=== PATIENT | male | born 1965 | race Two or more races ===

== ENCOUNTER 2025-07-04 08:41 | Outpatient (OUT) | payer OTHER, SELFPAY ==
--- OUTSIDE RECORDS SUMMARY | 2025-07-02 11:00 | XMS_ITS | Encounter Summary ---
Author Organization [facility] Address [address] [place] [address] Care Team Providers Care Human Resource Statistician Name Role Phone Unavailable Primary Care Provider Unavailabl e Reason for Referral * (Routine) - Pending Review Specialty Diagnoses / Procedures Referred By Contac t Referred To Contact Diagnoses Other chest pain Procedures ECG 12 lead unit performed Louis Guevara MD [address] [place] [phone] Phone: tel: fax: Referral ID Status Reason Start Date Expiration Date V isits Requested Visits Authorized [id number] Pending Review 07/02/2025 07/02/2026 1 1 Reason for Visit * Reason Comments New Patient Patient is here toda y for chest pain and to establish care with cardiology. Patient recently had a home sleep study, no results, patient will send testing equipment in today. Chest Pain Depression anxity Hypertension Hyperlipidemia Pulmonay nodule Encounter Details Date Type Department Care Team (Late st Contact Info) Description 07/02/2025 11:00 AM EDT Office Visit [facility] at [facility] [address] [place] [id number] Louis Guevara MD [address] [place] [address] Other chest pain (Primary Dx) Social History Tobacco Use Types Packs/Day Years Used Date Smoking Tobacco: Former Cigarettes Smokeless Tobacco: Never Tobacco Cessation:Counseling Given: Not Answered Alcohol Use Standard Drinks/Week Comments Not Currently 0 (1 standard drink = 0.6 oz pur e alcohol) Sex and Gender Information Value Date Recorded Sex Assigned at Male 07/02/2025 11:00 AM EDT Legal Sex Male 1:00 PM EDT Gender Identity Male 07/02/2025 11:00 AM EDT Sexual Orientation Heterosexual or Straight 06/16 11:00 AM EDT documented as of this encounter Last Filed Vital Signs Vital Sign Reading Time Taken Comments Blood Pressure 193/108 07/02/2025 11:19 AM EDT Pulse 65 07/02/2025 11:19 AM EDT Temperature - - Respiratory Rate - - Oxygen Saturation 98% 07/02/2025 11:19 AM EDT Inhaled Oxygen Concentration - - Weight 75.3 kg (166 lb) 07/02/2025 11:19 AM EDT Height 165.1 cm (5' 5 ) 07/02/2025 11:19 AM EDT Body Mass Index 27.62 07/02/2025 11:19 AM EDT documented in this encounter Progress Notes * Louis Guevara MD - 07/02/2025 11:00 AM EDT Subjective Patient ID: Rafa Cramer Jr. is a 60 y.o. male who presents for New Patient (Patient is here today for chest pain and to establish care with cardiology. Patient recently had a home sleep study, no results, patient will send testing equipment in today. ), Chest Pain, Depression, anxity, Hypertension, Hyperlipidemia, and Pulmonay nodule. I been having chest pains A lot of stress right now. Last job was at [employer]. New child at home. Hard pain in center of chest like an ache. When under a lot of pressure, tightening, short of breath. 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 His past medical history is significant for hyperlipidemia. DepressionPatient presents with the following symptoms: shortness of breath. Hypertension Associated symptoms include chest pain and shortness of breath. Hyperlipidemia Associated symptoms include chest pain and shortness of breath. Review of Systems Respiratory: Positive for chest tightness and shortness of breath. Cardiovascular: Positive for chest pain. Psychiatric/Behavioral: Positive for depression. Objective Visit Vitals BP (!) 193/108 (BP Location: Left arm, Patient Position: Sitting) Pulse 65 Physical Exam Constitutional: Appearance: Normal appearance. He is normal weight. HENT: Head: Normocephalic and atraumatic. Cardiovascular: Rate and Rhythm: Normal rate and regular rhythm. No extrasystoles are present. Chest Wall: PMI is not displaced. No thrill. Pulses: Carotid pulses are 2+ on the right side and 2+ on the left side. Heart sounds: Heart sounds not distant. No murmur heard. No friction rub. No gallop. Pulmonary: Effort: Pulmonary effort is normal. Breath sounds: Normal breath sounds. Abdominal: General: Abdomen is flat. Palpations: Abdomen is soft. Musculoskeletal: Right lower leg: No edema. Left lower leg: No edema. Skin: General: Skin is warm and dry. Neurological: General: No focal deficit present. Mental Status: He is oriented to person, place, and time. Mental status is at baseline. Psychiatric: Mood and Affect: Mood normal. Behavior: Behavior normal. Thought Content: Thought content normal. Assessment/Plan Mr. Cramer has typical anginal chest pain. With normal stress test plan exercise stress test to evaluate. Will start aspirin, enteric coated EC 81 mg Diagnosis Plan 1. Other chest pain ECG 12 lead unit performed Orders Placed This Encounter Procedures ECG 12 lead unit performed This back office order was created through the Back Office Visit Navigator section. Release to Patient: Immediately No results found for this or any previous visit (from the past 36 hours). No follow-ups on file. documented in this encounter Plan of Treatment Upcoming Encounters Date Type Department Care Team (Late st Contact Info) Description 07/09/2025 9:40 AM EDT Office Visit [facility] at [facility] [address] [place] [address] Louis Guevara MD [address] [place] [phone] documented as of this encounter Procedures Procedure Name Priority Date/Time Associated Diagnosis Comments ECG 12 LEAD UNIT PERFORMED Routine 07/02/2025 11:16 AM EDT Other chest pain documented in this encounter Results * ECG 12 lead unit performed (07/02/2025 11:16 AM EDT) us Louis Guevara MD ECG ORDERABLES Final Resu lt documented in this encounter Visit Diagnoses Diagnosis Other chest pain- Primary documented in this encounter
--- OUTSIDE RECORDS SUMMARY | 2025-07-04 08:47 | XMS_ITS | Clinical Summary ---
Author Organization [facility] Address [address] [place] [address] Care Team Providers Care Wrapper Opener Name Role Phone Unavailable Primary Care Provider Unavailabl e Social History Tobacco Use Types Packs/Day Years Used Date Smoking Tobacco: Never Assessed Sex and Gender Information Value Date Recorded Sex Assigned at Not on file Legal Sex Male 7:12 PM EDT Gender Identity Not on file Sexual Orientation Not on file Plan of Treatment Not on file
--- OUTSIDE RECORDS SUMMARY | 2025-07-04 08:47 | XMS_ITS | Clinical Summary ---
Author Organization [facility] Address [address], [address] [place] [address] Care Team Providers Care Checkout Operator Name Role Phone Unavailable Primary Care Provider Unavailabl e Social History Tobacco Use Types Packs/Day Years Used Date Smoking Tobacco: Never Assessed Sex and Gender Information Value Date Recorded Sex Assigned at Not on file Legal Sex Male 7:51 PM EST Gender Identity Not on file Sexual Orientation Not on file Plan of Treatment Not on file
--- OUTSIDE RECORDS SUMMARY | 2025-07-04 08:47 | XMS_ITS | Encounter Summary ---
Author Organization [facility] Address [address] [place] [address] Care Team Providers Care Solvent Plant Operator Name Role Phone Unavailable Primary Care Provider Unavailabl e Encounter Details Date Type Department Care Team (Late st Contact Info) Description 07/02/2025 Orders Only [facility] [address] [place] [address] Radha Lazcano MA Other chest pain (Primary Dx) Social History Tobacco Use Types Packs/Day Years Used Date Smoking Tobacco: Former Cigarettes Smokeless Tobacco: Never Alcohol Use Standard Drinks/Week Comments Not Currently 0 (1 standard drink = 0.6 oz pur e alcohol) Sex and Gender Information Value Date Recorded Sex Assigned at Male 07/02/2025 11:00 AM EDT Legal Sex Male 1:00 PM EDT Gender Identity Male 07/02/2025 11:00 AM EDT Sexual Orientation Heterosexual or Straight 06/16 11:00 AM EDT documented as of this encounter Plan of Treatment Upcoming Encounters Date Type Department Care Team (Late st Contact Info) Description 07/09/2025 9:40 AM EDT Office Visit [facility] [address] [place] [address] Louis Guevara MD [address] [place] [address] Scheduled Orders Name Type Priority Associated Diagnoses Orde r Schedule Routine Stress (Treadmill Only) Cardiac Services Routine Other chest pain Expected: 07/02/2025 (Approximate), Expires: 07/02/2027 documented as of this encounter Visit Diagnoses Diagnosis Other chest pain- Primary documented in this encounter
--- OUTSIDE RECORDS SUMMARY | 2025-07-04 08:47 | XMS_ITS | Clinical Summary ---
Author Organization [facility] Address [address] [place] [address] Care Team Providers Care Market Development Trainer Name Role Phone Unavailable Primary Care Provider Unavailabl e Allergies Active Allergy Reactions Criticality Noted Date Comments Lactose Diarrhea,Unknown 09/29/2020 Medications sertraline (Zoloft) 100 mg tablet Take 100 mg by mouth Twice daily at 6am and 6pm. 02/24/2025 Active rosuvastatin (Crestor) 5 mg tablet Take 5 mg by mouth in the morning. 04/21/2025 Active omega 7-ejd-mgr-fish oil (Fish OiL) 1,000 (120-180) mg capsule Take 1,000 mg by mouth once daily as directed. Active hydrOXYzine HCL (Atarax) 10 mg tablet Take 25 mg by mouth if needed. 03/24/2025 Active Active Problems Problem Noted Date Diagnosed Date Anxiety 07/02/2025 Chest pain 07/02/2025 Other chest pain 07/02/2025 Counseling, unspecified 07/02/2025 Depression 07/02/2025 Elevated blood-pressure read ing, without diagnosis of hypertension 07/02/2025 Essential (primary) hypertension 07/02/2025 History of diverticulitis 07/02/2025 History of pancreatitis 07/02/2025 Labile hypertension due to clinical environment 07/02/2025 Hypertriglyceridemia 07/02/2025 Generalized anxiety disorder 07/02/2025 Snoring 07/02/2025 Tobacco use disorder, continuous 07/02/2025 Encounters Date Type Department Care Team Description 07/02/2025 11:00 AM EDT Office Visit [facility] at [facility] [address] [place] [address] Louis Guevara MD Other chest pain (Primary Dx) 07/02/2025 Orders Only [facility] [address] [place] [address] Radha Lazcano MA Other chest pain (Primary Dx) 06/13/2025 Orders Only [facility] [address] [place] [address] Provider, MD Nirmal from Last 3 Months Family History Medical History Relation Name Comments Diabetes Brother 1 Diabetes Father Breast cancer Mother Breast cancer Sister Diabetes Sister Relation Name Status Comments Brother 1 Alive Brother 2 Alive Brother 3 Alive Brother 4 Alive Father Mother Alive Sister Alive Social History Tobacco Use Types Packs/Day Years [...] Heterosexual or Straight 06/16 11:00 AM EDT Last Filed Vital Signs Vital Sign Reading [...] Mass Index 27.62 07/02/2025 11:19 AM EDT Plan of Treatment Upcoming Encounters Date Type Department Care Team (Late st Contact Info) Description 07/09/2025 9:40 AM EDT [facility] [address] [place] [address] Louis Guevara MD [address] [place] [address] [place] [address] Health Maintenance Due Date Last Done Comments CT Colonography 1965 Colonoscopy 1965 Colorectal Cancer Screening 1965 FIT-DNA 1965 FIT 1965 FOBT 1965 Sigmoidoscopy 1965 Depression Screening 1976 Adult Tetanus 1986 Zoster Vaccines (1 of 2) 2014 COVID-19 Vaccine (2023-2 5 season) 2025 Influenza Vaccine (#1) 2025 HIB Vaccines Aged Out No longer eligi ble based on patient's age to complete this topic HPV Vaccines Aged Out No longer eligi ble based on patient's age to complete this topic IPV Vaccines Aged Out No longer eligi ble based on patient's age to complete this topic Meningococcal B Vaccine Aged Out No l onger eligible based on patient's age to complete this topic Meningococcal Vaccine Aged Out No donal tj eligible based on patient's age to complete this topic Pneumococcal Vaccine: Pediat rics (0 to 5 Years) and At-Risk Patients (6 to 64 Years) Aged Out No longer eligible b ased on patient's age to complete this topic Rotavirus Vaccines Aged Out No longer eligible based on patient's age to complete this topic Procedures Procedure Name Priority Date/Time Associated Diagnosis Comments ECG 12 LEAD UNIT PERFORMED Routine 07/02/2025 11:16 AM EDT Other chest pain CBC Routine 06/13/2025 8:13 AM EDT COMPREHENSIVE METABOLIC PANEL Routine 06/13/2025 8:13 AM EDT LIPID PANEL Routine 06/13/2025 8:13 AM EDT COMPREHENSIVE METABOLIC PANEL Routine 06/13/2025 8:11 AM EDT ECG 12-LEAD Routine 06/13/2025 8:10 AM EDT from Last 3 Months Results * ECG 12 lead unit performed (07/02/2025 11:16 AM EDT) us Louis Guevara MD ECG ORDERABLES Final Resu lt * CBC (06/13/2025 8:13 AM EDT) Blood Venous blood specimen / Unknown Historical Provider MD LAB BLOOD ORDERABLES Laura l Result * Lipid panel (06/13/2025 8:13 AM EDT) Blood Venous blood specimen / Unknown Result [facility] Provider MD LAB BLOOD ORDERABLES Laura l Result * Comprehensive metabolic panel (06/13/2025 8:13 AM EDT) Only the most recent of2 resultswithin the time period is included. Blood Venous blood specimen / Unknown Result [facility] Provider LAB BLOOD ORDERABLES Laura l Result * ECG 12 lead (06/13/2025 8:10 AM EDT) Result [facility] Provider ECG ORDERABLES Final Res ult from Last 3 Months Insurance [address] [place] [address] [place] [address]
--- NOTE | 2025-07-04 11:09 | PC.NURSE ---
Nursing Note Cardiac Stress Test Reviewed: Medication, allergies and patient history reviewed. Stress Test: [ ]? Patient tolerated stress test well. [ ]? Patient unable to tolerate walking on treadmill. Switched to Lexiscan stress test. [ ]? No chest pain noted per patient [ x]? Chest pain that resolved prior to leaving stress lab. [ ]? No dyspnea noted. [x ]? Dyspnea that resolved prior to leaving stress lab. [ x]? Patient left stress lab asymptomatic and hemodynamically stable. [ ]? Patient taken to the Emergency Room due to non-resolving symptoms following stress test. [ ]? Patient achieved target heart rate. [ x]? Patient unable to achieve target heart rate. [ ]? Aminophylline administered as reversal agent to Lexiscan (Regadenoson). [ ]? Nitro administered. Nursing Comments:Patient was unable to ambulate on the treadmill due to increased blood pressure. Patient complained of chest pain, lightheaded and shaking. Blood pressure start at 168/100 and increased to 240/120. Dr Jeronimo notified. New orders provided to patient. Patient educated on importance of starting new medication and to pick it up from pharmacy. Patients blood pressure decreased to baseline in recovery stage. Patient states chest pain and lightheaded subsided after a few minutes. Patient left cardiac lab stable and asymptomatic.
--- NOTE | 2025-07-04 16:03 | PM.STRESS ---
Stress Test Stress Test Requesting physician: HAYDEE CASTILLO Procedure: Treadmill EKG stress test General Information: Reason for Stress Test: [Chest pain] Cardiac History and Risk Factors: [Hypertension and hyperlipidemia] Resting 12 - Lead Electrocardiogram: Resting twelve-lead EKG showed sinus bradycardia, heart rate 57 bpm, T wave inversion in V3. Resting blood pressure 168/100. Patient was exercised according to standard Hakeem protocol and was able to finish 5 minutes and 6 seconds consistent with stage II and VII METS. Exercise was terminated because of excessive hypertensive response to exercise. At that level patient had mild chest discomfort and dizziness. Patient achieved only 103 bpm which represents only 65% of age-predicted maximum heart rate and maximal blood pressure 240/100 mmHg. This patient was monitored up to 10 minutes into recovery phase with heart rate back to 68 bpm and blood pressure to 164/100 mmHg. Of note chest pain resolved within couple minutes of recovery. EKG during exercise, at peak exercise and during recovery phase did not show any significant T or ST changes. Very rare isolated PVCs were noted Stress Test: Protocol: [Hakeem] Exercise Capacity: [Could not be determined due to premature termination of the test] Blood Pressure Response: [Resting hypertension and excessive hypertensive response to exercise] Rhythm: [Sinus, rare PVCs] ST - Response: [No ST changes] Patient Response: [Chest pain and dizziness at peak exercise] Interpretation: Submaximal stress test achieving only 65% of age-predicted maximum heart rate. Stress test was terminated due to excessive hypertensive response to exercise At this level of exercise there was no evidence of exercise-induced ischemic EKG changes or arrhythmia however the patient had chest discomfort at peak exercise with dizziness Plan: Patient was started on lisinopril 20 mg daily for blood pressure control and to check BMP in 1 week Patient to come to the cardiology clinic in about 10 to 15 days to check blood pressure Will reschedule him for a treadmill nuclear stress test when his blood pressure is better controlled Patient was advised to seek medical attention immediately if he has recurrent chest pain Dany Jeronimo MD [facility]
== END 2025-07-04 08:42 | disposition home or self-care (01) ==
LOC: CARD 08:45
PROVIDERS: Visit Provider Internal Medicine Cardiovascular Disease
DX: R07.89 Other chest pain (principal)
CPT/HCPCS: 93017

== ENCOUNTER 2025-07-09 07:14 | Outpatient (OUT) | payer OTHER, SELFPAY ==
--- NOTE | 2025-07-09 07:00 | NM_ITS ---
Patient Name: JUVENCIO GARCIA MR#: [id number] : 1965 Exam Date: 07/09/2025 Ordering Doctor: DR. TWILA JERONIMO M.D. RADIOLOGY REPORT PROCEDURE: NM BRYANNA PERF SPECT REST STR COMPARISON: None. INDICATIONS: HYPERTENSION, CHEST PAIN TECHNIQUE: Exam Description: Stress/Rest one day protocol gated SPECT Rest Imagin.2 mCi Tc-99m Cardiolite IV on 07/09/2025 Stress Imaging 30.5 mCi Tc-99m Cardiolite IV on 07/09/2025 Exercise Protocol: 0.4 mg Lexiscan given IV Heart Rate (bpm): Rest: 77 Max: 92 PMHR: 57 Blood Pressure: Rest: 186/92 Max: 186/92 Symptoms: Rest and peak stress ECG findings were pending and the EKG portion of the study was pending per attending physician RUST . For more details please see separate cardiac stress test report. FINDINGS: QUALITY OF STUDY: Good PERFUSION DEFECT: LOCATION: Inferior SIZE: Medium SEVERITY: Mild TYPE: Fixed with adequate contractility and thickening consistent with diaphragmatic attenuation artifact WALL MOTION: Normal LV SIZE: 91 mL. TID / TCD: 0.8 LVEF: Calculated EF 66%. SUMMARY: Normal myocardial perfusion imaging study CONCLUSION: Normal nuclear myocardial perfusion stress test without evidence of ischemia or infarction Normal left ventricular systolic function, ejection fraction 66% No transient ischemic dilatation, score 0.8 EKG portion of stress test is reported separately Dictated by: Twila Jeronimo MD on 07/10/2025 at 17:13 Approved by: Twila Jeronimo MD on 07/10/2025 at 17:18
[2025-07-09] MEDS: REGADENOSON 0.4 MG/5 ML SYRINGE IV (09:08)
--- NOTE | 2025-07-09 09:11 | PC.NURSE ---
Nursing Note Cardiac Stress Test Reviewed: Medication, allergies and patient history reviewed. Stress Test: [ ] Patient tolerated stress test well. [x ] Patient unable to tolerate walking on treadmill. Switched to Lexiscan stress test. [x ] No chest pain noted per patient [ ] Chest pain that resolved prior to leaving stress lab. [ ] No dyspnea noted. [x ] Dyspnea that resolved prior to leaving stress lab. [ x] Patient left stress lab asymptomatic and hemodynamically stable. [ ] Patient taken to the Emergency Room due to non-resolving symptoms following stress test. [ ] Patient achieved target heart rate. [x ] Patient unable to achieve target heart rate. [ ] Aminophylline administered as reversal agent to Lexiscan (Regadenoson). [ ] Nitro administered. Nursing Comments:Pt attempted TM but was unable to reach target HR. Pt switched to Lexiscan and tolerated well. No CP noted but had SOB after TM that resolved within 3 minutes of rest. Pt ambulated to cafeteria for breakfast prior to second set of images.
--- NOTE | 2025-07-09 12:42 | PM.STRESS ---
Stress Test Stress Test Requesting physician: HAYDEE CASTILLO Procedure: Exercise followed by Lexiscan Stress test General Information: Reason for Stress Test: chest pain Cardiac History and Risk Factors: age, male gender, hypertension Resting 12 - Lead Electrocardiogram: Sinus bradycardia 51 bpm, incomplete right bundle branch block Stress Test: Protocol: Exercise protocol attempted and then lexiscan given due to inability to achieve target heart rate Exercise Capacity: Good, achieved 9 minutes Hakeem protocol prior to lexiscan administration Blood Pressure Response: Normal, peak BP 186/98 achieved Rhythm: Sinus with occasional PVC, APC and artifact noted ST - Response: No EKG changes seen with either exercise to a low HR (115 bpm) or during lexiscan infusion Patient Response: No chest pain or shortness of breath noted Interpretation: No EKG evidence of ischemia seen at a low HR (115 bpm) with exercise or during lexiscan infusion. Nuclear images will be reported separately
== END 2025-07-09 07:15 | disposition home or self-care (01) ==
LOC: NM 07:14
PROVIDERS: Visit Provider Internal Medicine Cardiovascular Disease
DX: R07.89 Other chest pain (principal)
CPT/HCPCS: 78452; 93017; A9500; J2785